=== PATIENT | male | born 1985 | race Caucasian/White ===

== ENCOUNTER 2020-11-08 20:18 | Emergency (ER) | payer MEDICARE, MEDICAID, SELFPAY ==
[2020-11-08 20:30] VITALS: BP 111/66; PULSE 102; RESP 16; TEMP 36.8; O2SAT 96; BMI 23.0
--- NOTE | 2020-11-08 21:01 | ED.SKABFB ---
HPI - Skin/Abscess/Foreign Bdy General Chief complaint: Skin/Abscess/Foreign Body Stated complaint: allergic reaction Time Seen by Provider: 11/08/20 21:01 Source: patient Mode of arrival: ambulatory Limitations: no limitations History of Present Illness HPI narrative: Patient is a 35-year-old male no significant past medical history who presents with itchy rash on his right lower extremity and left upper extremity x2 days. Patient states the itching has gotten much worse today. 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 He has tried A & D ointment which seems to make it a little bit better but it has not gone away. Patient denies shortness of breath, throat itchiness, fever or sick contacts. Related Data Allergies Allergy/AdvReac Type Severity Reaction Status Date / Time No Known Allergies Allergy Unverified 03/09/20 15:45 Review of Systems Review of Systems: Yes all other systems are reviewed and are negative PMFSH Social History Social History Advance Directives: No Advance Directives Information Provided: Yes Physical Exam Vital Signs: Vital Signs: Last Vital Signs Temp 98.2 F 11/08/20 20:30 Pulse 102 H 11/08/20 20:30 Resp 16 11/08/20 20:30 BP 111/66 11/08/20 20:30 Pulse Ox 96 11/08/20 20:30 Body Mass Index 23.0 Const: General: cooperative, healthy appearing, comfortable, no acute distress and well developed Orientation/consciousness: patient oriented x3 Limitations: no limitations HENMT: Head: Yes normal to inspection Eyes: General: appearance normal, both eyes and all related structures Neck: Neck: Yes normal visual inspection and Yes full ROM Resp: Effort & Inspection: normal respiratory effort and able to speak in complete sentences Skin: Rashes: rashes noted forearm size, arrangement linear, color red, morphology linear and surface rough Neuro: General: patient oriented x3 Extrem: General: Yes normal to inspection Discharge Plan Discharge Clinical Impression: Allergic dermatitis due to poison albertina Patient Disposition: Home, Self-Care Instructions: Poison Albertina (ED) Additional Instructions: We have given you 1 dose of steroids tonight, that should help with the itching, you can also take antihistamines such as Benadryl or Zyrtec for the next few days. Oatmeal baths and hydrocortisone cream applied to the itchy areas will also reduce the itching. Be sure to wash all of the clothes that have come into contact with your poison albertina before you really wear them because you will just keep infecting yourself if you do not.
[2020-11-08] MEDS: predniSONE 20 MG TABLET PO (21:14)
== END 2020-11-08 21:35 | disposition home or self-care (01) ==
PROVIDERS: Emergency Provider Emergency Medicine
DX: L23.7 Allergic contact dermatitis due to plants, except food (principal)
CPT/HCPCS: 99283

== ENCOUNTER 2021-12-09 13:47 | Emergency (ER) | payer MEDICARE, MEDICAID, SELFPAY ==
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
[2021-12-09 13:49] VITALS: BP 128/75; PULSE 110; RESP 18; TEMP 36.6; O2SAT 97; BMI 23.8
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
== END 2021-12-09 17:08 | disposition home or self-care (01) ==
PROVIDERS: Emergency Provider Emergency Medicine Emergency Medical Services
DX: S00.81XA Abrasion of other part of head, initial encounter (principal); M54.2 Cervicalgia; R10.9 Unspecified abdominal pain; M54.6 Pain in thoracic spine; R51.9 Headache, unspecified; M79.10 Myalgia, unspecified site; V43.52XA Car driver injured in collision with other type car in traffic accident, initial encounter; Y93.9 Activity, unspecified; Y92.410 Unspecified street and highway as the place of occurrence of the external cause; Y99.9 Unspecified external cause status
CPT/HCPCS: 70450; 70486; 71250; 72125; 74176; 99282; 99283; 99284

== ENCOUNTER 2022-03-11 17:31 | Emergency (ER) | payer MEDICARE, MEDICAID, SELFPAY ==
--- NOTE | ~2022-03-11 | XR_ITS ---
EXAMINATION: XR KNEE, LEFT CLINICAL INFORMATION: Knee pain COMPARISON: None TECHNIQUE: Three views of the left knee. FINDINGS: No visible acute fracture or dislocation. No significant joint effusion is seen.. Alignment is anatomic. Joint spaces are well maintained. No abnormal soft tissue calcification. Mild soft tissue swelling anterior to the patella. XR/XR knee LT 2V IMPRESSION: No radiographically evident acute osseous abnormality.
[2022-03-11 17:34] VITALS: BP 122/75; PULSE 81; RESP 16; TEMP 36.8; O2SAT 100; BMI 23.6
== END 2022-03-11 21:25 | disposition left against medical advice (07) ==
PROVIDERS: Emergency Provider Emergency Medicine
DX: R22.42 Localized swelling, mass and lump, left lower limb (principal); M25.562 Pain in left knee
CPT/HCPCS: 73560; 99281; 99283

== ENCOUNTER 2022-04-10 18:07 | Emergency (ER) | payer MEDICARE, MEDICAID, SELFPAY ==
--- NOTE | ~2022-04-10 | XR_ITS ---
EXAMINATION: XR FINGER, LEFT CLINICAL INFORMATION: Status post foreign body removal. COMPARISON: None TECHNIQUE: 3 views of the left hand second digit. FINDINGS: No acute fracture or dislocation. The joint spaces are unremarkable in carpal bones are normally aligned. The distal radius and ulna are intact. No radiopaque foreign body. XR/XR finger LT min 2V IMPRESSION: Unremarkable left hand. No radiopaque foreign body in the second digit.
--- NOTE | ~2022-04-10 | XR_ITS ---
EXAMINATION: XR HAND, LEFT CLINICAL INFORMATION: Nail entering and exiting through the distal portion of the second digit COMPARISON: None TECHNIQUE: PA, lateral, and oblique views of the left hand. FINDINGS: On the AP projections, there is a metallic nail obliquely projected over the distal second digit. The head of the nail is at the level of the tip of the second digit, and projects obliquely over the distal phalanx. The underlying bone is obscured by the nail. The more distal aspect of the nail is projected over the third digit at the level of the distal third proximal phalanx. On the lateral projection, the needle is projected over the second digit. Remainder the bones are intact. Ulna negative variance. XR/XR hand LT min 3V IMPRESSION: Metallic nail/foreign body projected over the distal aspect of the third digit, as detailed above. This presumably represents a penetrating injury. The underlying bone is obscured by the metallic foreign body. The more distal aspect of radius projected over the third digit, described above.
[2022-04-10 18:19] VITALS: BP 102/56; PULSE 75; RESP 18; TEMP 37.2; O2SAT 100; BMI 22.9
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
[2022-04-10] MEDS: oxyCODONE HCl Immed Release 5 MG TABLET PO (22:11)
[2022-04-10] MEDS: Diphth,Pertus(ACell),Tet Adult 0.5 ML SYRINGE IM (22:13)
[2022-04-10] MEDS: Amoxicillin/Potassium Clav 875 MG TABLET PO (22:41)
[2022-04-11 00:09] VITALS: BP 98/54; PULSE 55; RESP 16; TEMP 36.5; O2SAT 97
== END 2022-04-11 00:36 | disposition home or self-care (01) ==
PROVIDERS: Emergency Provider Internal Medicine
DX: S61.241A Puncture wound with foreign body of left index finger without damage to nail, initial encounter (principal); W45.0XXA Nail entering through skin, initial encounter; W29.4XXA Contact with nail gun, initial encounter; Y93.89 Activity, other specified; Y92.9 Unspecified place or not applicable; Y99.9 Unspecified external cause status
CPT/HCPCS: 64450; 73130; 73140; 90471; 90715; 99283; 99284

== ENCOUNTER 2022-05-29 10:51 | Emergency (ER) | payer MEDICARE, MEDICAID, SELFPAY ==
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
[2022-05-29 12:00] VITALS: BP 131/66; PULSE 78; RESP 18; TEMP 37.1; O2SAT 98; BMI 22.2
[2022-05-29] MEDS: Ketorolac Tromethamine 15 MG/ML VIAL IM (14:51)
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
== END 2022-05-29 17:29 | disposition home or self-care (01) ==
PROVIDERS: Emergency Provider Emergency Medicine Emergency Medical Services
DX: S13.4XXA Sprain of ligaments of cervical spine, initial encounter (principal); M54.2 Cervicalgia; R51.9 Headache, unspecified; V43.52XA Car driver injured in collision with other type car in traffic accident, initial encounter; Y93.9 Activity, unspecified; Y92.410 Unspecified street and highway as the place of occurrence of the external cause; Y99.9 Unspecified external cause status; Z79.899 Other long term (current) drug therapy
CPT/HCPCS: 70450; 72125; 96372; 99283; 99284; J1885

== ENCOUNTER 2022-08-01 23:13 | Emergency (ER) | payer OTHER, MEDICARE, MEDICAID, SELFPAY ==
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
[2022-08-01 23:21] VITALS: BP 102/69; BP 138/88; PULSE 77; PULSE 84; RESP 16; O2SAT 97; BMI 22.2
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
[2022-08-02 00:20] VITALS: BP 114/72; PULSE 82; RESP 18; O2SAT 98
[2022-08-02 02:32] VITALS: BP 115/60; PULSE 72; RESP 16; O2SAT 97
== END 2022-08-02 04:03 | disposition home or self-care (01) ==
PROVIDERS: Emergency Provider Emergency Medicine
DX: Z04.1 Encounter for examination and observation following transport accident (principal); M79.18 Myalgia, other site
CPT/HCPCS: 70450; 72070; 72125; 99282; 99284

== ENCOUNTER 2022-08-04 17:08 | Emergency (ER) | payer OTHER, MEDICARE, MEDICAID, SELFPAY ==
[2022-08-04 17:23] VITALS: BP 104/71; PULSE 88; RESP 18; TEMP 36.6; O2SAT 99; BMI 22.6
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
[2022-08-04] MEDS: oxyCODONE HCl Immed Release 5 MG TABLET 10 MG PO (19:00)
== END 2022-08-04 19:03 | disposition home or self-care (01) ==
PROVIDERS: Emergency Provider Emergency Medicine
DX: S06.0X0A Concussion without loss of consciousness, initial encounter (principal); V43.52XA Car driver injured in collision with other type car in traffic accident, initial encounter; Y93.9 Activity, unspecified; Y92.410 Unspecified street and highway as the place of occurrence of the external cause; Y99.9 Unspecified external cause status
CPT/HCPCS: 99283

== ENCOUNTER 2023-12-01 00:01 | Emergency (ER) | payer MEDICARE, MEDICAID, SELFPAY ==
[2023-12-01 00:59] VITALS: BP 107/61; PULSE 73; RESP 18; TEMP 36.6; O2SAT 99; BMI 23.8
[2023-12-01 05:37] VITALS: BP 117/68; PULSE 61; RESP 17; TEMP 36.6; O2SAT 98
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
[2023-12-01] MEDS: predniSONE 10 MG TABLET 50 MG PO (07:18)
[2023-12-01] MEDS: Cyclobenzaprine HCl 10 MG TABLET PO (07:18)
[2023-12-01 07:23] VITALS: BP 117/68; PULSE 61; RESP 17; TEMP 36.6; O2SAT 98
== END 2023-12-01 07:27 | disposition home or self-care (01) ==
PROVIDERS: Emergency Provider Emergency Medicine
DX: G62.9 Polyneuropathy, unspecified (principal)
CPT/HCPCS: 99283; 99284